=== PATIENT | male | born 1935 | race Caucasian/White ===

== ENCOUNTER → 2018-09-28 | Outpatient (CLI) | payer BC ==
[~2018-09-28] MED LIST: ASPI-482 PO; LISI1TAB5 PO; METO25TA4 PO; SIMV40TA3 PO
--- NOTE | 2018-09-28 09:51 | CARD ---
MR#: [id number] Date of Study: 09/28/2018 Ordering Physician: KONRAD CORTES, Referring Physician: KONRAD CORTES, Tech: Amy Cherry [facility] APPROVED REPORT EXAM: Two-dimensional and M-mode echocardiogram with Doppler and color Doppler. Other Information Quality : Technically LimitedHR: 88bpm Rhythm : PacemakerTechnically limited study due to body habitus. INDICATION Heart Block 2D DIMENSIONS RVDd3.2 (2.9-3.5cm)Left Atrium(2D)4.0 (1.6-4.0cm) IVSd1.3 (0.7-1.1cm)Aortic Root(2D)3.5 (2.0-3.7cm) LVDd4.6 (3.9-5.9cm)LVOT Diameter2.1 (1.8-2.4cm) PWd1.0 (0.7-1.1cm)LVDs3.1 (2.5-4.0cm) FS (%) 32.2 %SV57.5 ml LVEF(%)60.0 (>50%) M-Mode DIMENSIONS Left Atrium(MM)4.06 (2.5-4.0cm)Aortic Root3.65 (2.2-3.7cm) Aortic Valve AoV Peak Javier.141.1cm/sAoV VTI27.4cm AO Peak GR.8.0mmHgLVOT Peak Javier.99.2cm/s AO Mean GR.4mmHgAVA (VMAX)2.34cm2 EMILIA (VTI)2.30cm2 Mitral Valve MV E Yffdxeuj93.0cm/sMV DECEL [id number] MV A Fefvjscx138.7cm/sE/A Ratio0.8 MV A [id number] Pulmonary Valve PV Peak Vekfinil22.1cm/s Tricuspid Valve TR P. Qeupqwaq315yp/sRAP [id number] TR Peak Gr.[id number] LEFT VENTRICLE The left ventricle is normal size. Proximal septal thickening is noted. Left ventricle systolic funct ion is grossly normal. The Ejection Fraction is 55-60%. Septal motion consistent with conduction abno rmality. There is normal LV segmental wall motion. Transmitral Doppler flow pattern is Grade I-abnorm al relaxation pattern. RIGHT VENTRICLE The right ventricle is normal size. There is normal right ventricular wall thickness. The right ventr icular systolic function is normal. Pacer lead noted in RV/RA. ATRIA The left atrium is mildly dilated. The right atrium is mildly dilated. The interatrial septum is inta ct with no evidence for an atrial septal defect or patent foramen ovale as noted on 2-D or Doppler im aging. AORTIC VALVE The aortic valve is normal in structure and function. The aortic valve is trileaflet. Doppler and Col or Flow revealed no significant aortic regurgitation. There is no significant aortic valvular stenosi s. There is no aortic valvular vegetation. MITRAL VALVE The mitral valve is normal in structure and function. There is no evidence of mitral valve prolapse. There is no mitral valve stenosis. Doppler and Color-flow revealed trace to mild mitral regurgitation . TRICUSPID VALVE The tricuspid valve is normal in structure and function. Doppler and Color Flow revealed trace tricus pid regurgitation. The PA pressure was estimated at 32 mmHg. There is no tricuspid valve prolapse or vegetation. There is no tricuspid valve stenosis. PULMONIC VALVE The pulmonic valve is not well visualized. GREAT VESSELS The aortic root is normal in size. The ascending aorta is normal in size. The IVC is normal in size a nd collapses >50% with inspiration. PERICARDIAL EFFUSION There is no evidence of significant pericardial effusion. Critical Notification Critical Value: No <Conclusion> Left ventricle systolic function is grossly normal. The Ejection Fraction is 55-60%. Septal motion consistent with conduction abnormality. There is normal LV segmental wall motion. Pacer lead noted in RV/RA. Signed by : Oscar Sebastian, Electronically Approved : 09/28/2018 09:51:12
== END | disposition home or self-care (01) ==
LOC: ECHO 09:01
PROVIDERS: ATTEND Internal Medicine Cardiovascular Disease
DX: I34.0 Nonrheumatic mitral (valve) insufficiency (principal); I25.10 Atherosclerotic heart disease of native coronary artery without angina pectoris
CPT/HCPCS: 93306